=== PATIENT | female | born 1995 | race African-American/Black ===

== ENCOUNTER 2020-07-06 18:56 | Emergency (ER) | payer SELFPAY ==
[~2020-07-06] VITALS: Ht 162.6 cm; Wt 77.1 kg
[2020-07-06 19:15] VITALS: BP 128/76
--- NOTE | 2020-07-06 19:15 | NUR ---
ED Nurse Note: pt walked into ED c/o RUQ abdominal pain for 2 days. Pt reports she was seen at another ED 2 days ago with diagnosis of fibroids and was having vaginal bleeding for 1 month, pt was not given any prescriptions. Pt is AAOx4, breathing even and unlabored. Denies n/v/d, denies fever and chills.
--- NOTE | 2020-07-06 19:34 | NUR ---
ED Nurse Note: blood and urine sent to lab
--- NOTE | 2020-07-06 19:35 | Emergency Room Report ---
History of Present Illness General Chief Complaint: Abdominal Pain Source: Patient Present Illness HPI Patient is a 24-year-old female presents for increased right-sided flank pain. Reports having recent ER visit for similar symptoms. Reports of increased pain with movement. Denies any cough. States that she had not been vomiting. Prior history of fibroids as well as ER visit 2 days ago. States her labs were normal at that time. She denies being . Pain is worse with eating. States she is had decreased bowel movements. Allergies: Coded Allergies: No Known Allergies (Unverified , 07/06/20) COVID-19 Screening Contact w/high risk pt: No Experienced COVID-19 symptoms?: No COVID-19 Testing performed HARDWARE INSTALLATION COORDINATOR: No Patient History Past Medical History: see triage record Last Menstrual Period: 05/2020 Now: No Reviewed Nursing Documentation: PMH: Agreed; PSxH: Agreed Review of Systems All Other Systems: negative except mentioned in HPI Physical Exam Vital Signs Date Time Temp Pulse Resp B/P (MAP) Pulse Ox O2 Delivery O2 Flow Rate FiO2 07/06/20 19:11 98.4 100 18 121/76 (91) 97 Room Air Sp02 EP Interpretation: reviewed, normal General Appearance: normal inspection, well appearing, no apparent distress, alert, GCS 15 Head: atraumatic ENT: normal ENT inspection, hearing grossly normal, normal voice Neck: normal inspection, full range of motion, supple, no bony tend Respiratory: normal inspection, lungs clear, normal breath sounds, no respiratory distress, no retraction, no wheezing Cardiovascular #1: regular rate, rhythm, no edema Gastrointestinal: normal inspection, normal bowel sounds, non tender, soft, no guarding, no hernia Genitourinary: no CVA tenderness Musculoskeletal: normal inspection, back normal, normal range of motion Neurologic: alert, responsive, speech normal, normal inspection Psychiatric: normal inspection, judgement/insight normal, mood/affect normal Medical Decision Making ER Course Patient is a 24-year-old female presents for increased abdominal pain. Differential diagnosis includes is not limited to renal colic, ruptured ovarian cyst, obstruction, cholecystitis among others. Because of complexity of patient's case laboratory tests and imaging studies were ordered. Last Vital Signs Date Time Temp Pulse Resp B/P (MAP) Pulse Ox O2 Delivery O2 Flow Rate FiO2 07/06/20 19:11 98.4 100 18 121/76 (91) 97 Room Air Referrals: NOT CHOSEN IPA/,REFERRING (PCP) Rian Dong MD Jul 06, 2020 19:35
[2020-07-06 19:57] LABS: APPEARANCE,URINE CLEAR; BILIRUBIN, URINE NEGATIVE (NEGATIVE); COLOR,URINE PALE YELLOW; GLUCOSE, URINE (UA) NEGATIVE (NEGATIVE); KETONES,URINE NEGATIVE (NEGATIVE); LEUKOCYTE ESTERASE ,URINE 2+ (NEGATIVE); NITRITE,URINE NEGATIVE (NEGATIVE); PH,URINE 8 (4.5-8.0); PROTEIN,URINE NEGATIVE (NEGATIVE); UROBILINOGEN,URINE NORMAL MG/DL (0.0-1.0)
[2020-07-06 19:59] LABS: BASOPHILS % (AUTO) 1.6 % (0.0-2.0); EOSINOPHILS % (AUTO) 0.3 % (0.0-3.0); HEMATOCRIT 38.5 % (37.0-47.0); HEMOGLOBIN 13.2 G/DL (12.0-16.0); LYMPHOCYTES % (AUTO) 18.8 % (20.0-45.0); MEAN CORPUSCULAR VOLUME 87 FL (80-99); MONOCYTES % (AUTO) 5.6 % (1.0-10.0); NEUTROPHILS % (AUTO) 73.7 % (45.0-75.0); PLATELET COUNT 384 K/UL (150-450); RED BLOOD COUNT 4.42 M/UL (4.20-5.40); RED CELL DISTRIBUTION WIDTH 12.1 % (11.6-14.8); WHITE BLOOD COUNT 9.1 K/UL (4.8-10.8)
[2020-07-06 20:07] LABS: ANION GAP 5 mmol/L (5-15); BLOOD UREA NITROGEN 5 mg/dL (7-18); CALCIUM 9.3 MG/DL (8.5-10.1); CARBON DIOXIDE 31 MMOL/L (21-32); CHLORIDE 101 MMOL/L (98-107); CREATININE 0.7 MG/DL (0.55-1.30); POTASSIUM 3.6 MMOL/L (3.5-5.1); SODIUM 137 MMOL/L (136-145)
[2020-07-06 20:12] LABS: ALANINE AMINOTRANSFERASE 63 U/L (12-78); ALBUMIN 3.6 G/DL (3.4-5.0); ALBUMIN/GLOBULIN RATIO 0.7 (1.0-2.7); ALKALINE PHOSPHATASE 84 U/L (46-116); ASPARTATE AMINO TRANSFERASE 33 U/L (15-37); BILIRUBIN,TOTAL 0.3 MG/DL (0.2-1.0)
[2020-07-06] MEDS ORDERED: cefTRIAXone 1 GM in NS 55 ML IVPB ONE (20:15)
[2020-07-06] MEDS ORDERED: Ketorolac 30mg Inj IV ONE (20:15)
--- NOTE | 2020-07-06 20:42 | NUR ---
ED Nurse Note: US tech at bedside
--- NOTE | 2020-07-06 21:11 | NUR ---
ED Nurse Note: US completed
[2020-07-06] MEDS ORDERED: metroNIDAZOLE 500mg tab ORAL ONE (21:15)
[2020-07-06] MEDS ORDERED: DOXYCYCLINE MO100 MG ORAL (21:25)
[2020-07-06] MEDS ORDERED: METRONIDAZOLE500 MG ORAL (21:25)
[2020-07-06] MEDS ORDERED: CEPHALEXIN500 MG ORAL (21:25)
[2020-07-06 21:40] VITALS: BP 125/77
--- NOTE | 2020-07-06 21:40 | NUR ---
ER DISCHARGE NOTE: Patient is cleared to be discharged per ERMD, pt is aox4, on room air, with stable vital signs. pt was given dc and paper prescriptions for antibiotics with instructions to f/u with PMD, pt was able to verbalize understanding, pt id band and iv site removed without complications. pt is able to ambulate with steady gait. pt took all belongings.
--- NOTE | 2020-07-06 21:48 | Diagnostic Imaging Report ---
EXAM: US Abdomen Complete CLINICAL HISTORY: PAIN TECHNIQUE: Real-time ultrasound of the abdomen with image documentation. COMPARISON: None. FINDINGS: Liver: The liver measures 18.0 cm. No intrahepatic bile duct dilation. Gallbladder: Gallbladder is normally distended with normal gallbladder wall measuring 1.4 mm. No gallstones. No pericholecystic fluid. Common bile duct: The common bile duct measures 0.23 cm. No stones. No dilation. Pancreas: Normal pancreas. Kidneys: Right kidney measures 10.9 x 4.0 x 5.2 cm. The left kidney measures 9.9 x 5.9 x 5.5 cm. No stones. No hydronephrosis. Spleen: The spleen measures 10.6 cm. Aorta: Proximal aorta measures 1.5 cm x 1.2 cm. Aortic bifurcation area measures 0.83 cm. No aneurysm. Inferior vena cava: Unremarkable. Free fluid: No free fluid. IMPRESSION: Unremarkable ultrasound of the abdomen. Specifically, no gallstones or signs of acute cholecystitis.
== END 2020-07-06 21:40 | disposition home or self-care (01) ==
LOC: EMR 19:15
DX: R10.9 Unspecified abdominal pain (principal)
CPT/HCPCS: 36415; 76700; 80053; 80307; 81001; 81003; 81025; 83690; 85025; 85379; 86140; 87086; 96365; 96375; 99284; J0696; J1885